=== PATIENT | male | born 1950 | race Caucasian/White ===

== ENCOUNTER 2018-02-20 08:03 | Day surgery (SDC) | payer OTHER ==
[~2018-02-20] VITALS: Ht 170.2 cm; Wt 64.4 kg
[~2018-02-20 08:03] MED LIST: Bupropion HCl150 M2 PO; Fish Oil 1,0001 EAC3 PO; GUAI600T33 PO; HYDR1TAB94 PO; LEVO750 PO; LOSA25 PO; METO25 PO; METO25ER PO; NAPR220 PO; PROAIR RESPICL90 MCG INH; TAMS.4ER PO; Tambocor100 MG PO; WARF5 PO
== END 2018-02-20 23:11 | disposition home or self-care (01) ==
LOC: ORSCMMR 08:03 → ORD 09:30 → ORSCMMR 09:30
PROVIDERS: Surgery
PROC: 0DBK8ZX Excision of Ascending Colon, Via Natural or Artificial Opening Endoscopic, Diagnostic (ICD-10-PCS; principal; 2018-02-20 09:30)
PROC: 0DBH8ZX Excision of Cecum, Via Natural or Artificial Opening Endoscopic, Diagnostic (ICD-10-PCS; principal; 2018-02-20 09:30)
DX: Z12.11 Encounter for screening for malignant neoplasm of colon (principal); K63.5 Polyp of colon; Z86.010 Personal history of colon polyps; F32.9 Major depressive disorder, single episode, unspecified; I10 Essential (primary) hypertension; J44.9 Chronic obstructive pulmonary disease, unspecified; F17.200 Nicotine dependence, unspecified, uncomplicated; Z79.01 Long term (current) use of anticoagulants; Z79.899 Other long term (current) drug therapy
CPT/HCPCS: 88305; J7120

== ENCOUNTER 2019-12-30 07:02 | Day surgery (SDC) | payer OTHER ==
[~2019-12-30] VITALS: Ht 170.2 cm; Wt 68.1 kg
[~2019-12-30 07:02] MED LIST changes: +AMLO5 PO; +ATOR20 PO; +OXYB5 PO; +SILD50TA PO
[2019-12-30] MEDS ORDERED: CEPH500 PO (10:47)
--- NOTE | 2019-12-30 13:51 | NUR ---
pt to x-ray per poultry grader
--- NOTE | 2019-12-30 15:23 | NUR ---
late entry: pt returned from x-ray with potato grader
--- NOTE | 2019-12-30 17:40 | NUR ---
DISCHARGE GONE OVER WITH PT. PT VERBALIZES UNDERSTANDING OF INSTRUCTIONS. ARM SLING PLACED TO LEFT ARM. DR WEINBERG IN AND CHANGED DRESSING PRIOR TO DISCHARGE. PT DRESSED SELF. SALINE LOCK OUT WITH CATHETER INTACT. PT TO PRIVATE VEHICLE PER W/C WITH 1 STAFF.
== END 2019-12-30 17:30 | disposition home or self-care (01) ==
LOC: MHTC 07:02
DX: I49.5 Sick sinus syndrome (principal); I48.0 Paroxysmal atrial fibrillation; I45.5 Other specified heart block; J44.9 Chronic obstructive pulmonary disease, unspecified; I10 Essential (primary) hypertension; I35.0 Nonrheumatic aortic (valve) stenosis; B19.20 Unspecified viral hepatitis C without hepatic coma; E78.5 Hyperlipidemia, unspecified; Z79.899 Other long term (current) drug therapy; Z87.891 Personal history of nicotine dependence
CPT/HCPCS: 33208; 71046; 76937; 99152; 99153; A9270; C1785; C1898; J0690; J1644; J2250; J3010; J7030; J7040